=== PATIENT | female | born 1980 | race Caucasian/White ===

== ENCOUNTER → 2019-07-06 | Outpatient (CLI) | payer BC ==
--- NOTE | 2019-07-07 10:07 | MM ---
Reason for exam: screening (asymptomatic). Baseline mammogram. History: Patient is nulliparous. Physical Findings: Nurse did not find any significant physical abnormalities on exam. MG 3D Screening Mammo W/Cad Bilateral CC and MLO view(s) were taken. The breast tissue is heterogeneously dense. This may lower the sensitivity of mammography. There is a 7mm mass 6-7cm from nipple in the right upper outer quadrant. No suspicious abnormality on the left breast. These results were verbally communicated with the patient and result sheet given to the patient on 07/06/19. ASSESSMENT: Incomplete: need additional imaging evaluation, BI-RAD 0 RECOMMENDATION: Ultrasound of the right breast. (upper outer quadrant)
--- NOTE | 2019-07-07 10:08 | USB ---
Reason for exam: additional evaluation requested from abnormal screening. History: Patient is nulliparous. Physical Findings: Breast exam preformed at baseline screening. US Breast Workup Limited RT Right limited breast ultrasound including focal area of concern, retroareolar and axilla demonstrates a 9 x 6 x 8mm oval, cystic lesion at 10 o'clock, corresponds to mammographic findings. These results were verbally communicated with the patient and result sheet given to the patient on 07/06/19. ASSESSMENT: Benign, BI-RAD 2 RECOMMENDATION: Return to routine screening mammogram schedule for both breasts.
== END | disposition home or self-care (01) ==
LOC: RADMAMWWP 13:30
PROVIDERS: ATTEND Obstetrics & Gynecology
DX: Z12.31 Encounter for screening mammogram for malignant neoplasm of breast (principal); R92.8 Other abnormal and inconclusive findings on diagnostic imaging of breast
CPT/HCPCS: 77063; 77067

== ENCOUNTER → 2019-07-06 | Outpatient (CLI) | payer BC ==
[2019-07-07 03:48] LABS: Red Top (Bentgrass) IgE <0.10 kU/L
[2019-07-07 03:49] LABS: Cat Epith & Dander IgE 1.06 kU/L; Dermato. farinae IgE <0.10 kU/L
[2019-07-07 03:50] LABS: Aspergillus fumagatus IgE <0.10 kU/L; Cladosporian herbarum IgE <0.10 kU/L; Cockroach IgE <0.10 kU/L; Dog Dander IgE 0.16 kU/L
[2019-07-07 03:51] LABS: Alternaria alternata IgE <0.10 kU/L; Birch IgE <0.10 kU/L; Maple (Box Elder) IgE <0.10 kU/L
[2019-07-07 03:52] LABS: Elm IgE <0.10 kU/L; Oak IgE <0.10 kU/L
[2019-07-07 03:53] LABS: Ragweed,Common IgE 2.55 kU/L
[2019-07-07 11:49] LABS: Alt. alternata IgE Class CLASS 0; Alternaria alternata IgE <0.10 kU/L (<0.10); Asperg. fumagatus IgE <0.10 kU/L (<0.10); Asperg. fumagatus IgE Class CLASS 0; Candida albicans IgE Class CLASS 0; Clad herbarum IgE <0.10 kU/L (<0.10); Clad herbarum IgE Class CLASS 0; Mucor racemosus IgE <0.10 kU/L (<0.10); Mucor racemosus IgE Class CLASS 0; Penicillium chrysogenum IgE <0.10 kU/L (<0.10); Penicillium chrysogenum IgE Cl CLASS 0
== END | disposition home or self-care (01) ==
LOC: LABWHC1 14:28
PROVIDERS: ATTEND Family Medicine
DX: J30.9 Allergic rhinitis, unspecified (principal)
CPT/HCPCS: 36415; 82785; 86003

== ENCOUNTER → 2020-11-21 | Outpatient (CLI) | payer BC ==
--- NOTE | 2020-11-22 08:55 | MM ---
Reason for exam: screening (asymptomatic). Last mammogram was performed 1 year and 5 months ago. History: Patient is nulliparous. Physical Findings: A clinical breast exam by your physician is recommended on an annual basis and results should be correlated with mammographic findings. MG 3D Screening Mammo W/Cad Bilateral CC and MLO view(s) were taken. Prior study comparison: July 06, 2019, bilateral MG 3d screening mammo w/cad. The breast tissue is heterogeneously dense. This may lower the sensitivity of mammography. There are benign appearing round calcifications bilaterally. There is no discrete abnormality. ASSESSMENT: Benign, BI-RAD 2 RECOMMENDATION: Routine screening mammogram of both breasts in 1 year.
== END | disposition home or self-care (01) ==
LOC: RADMAMWWP 07:21
PROVIDERS: ATTEND Obstetrics & Gynecology
DX: Z12.31 Encounter for screening mammogram for malignant neoplasm of breast (principal)
CPT/HCPCS: 77063; 77067

== ENCOUNTER → 2021-05-01 | Outpatient (CLI) | payer BC ==
[2021-05-02 15:23] LABS: Estradiol 43.6 pg/mL; Testosterone 20.6 ng/mL (9.01-47.94)
== END | disposition home or self-care (01) ==
LOC: LABWHC1 08:10
PROVIDERS: ATTEND Family Medicine
DX: E34.9 Endocrine disorder, unspecified (principal)
CPT/HCPCS: 36415; 82670; 84144; 84402; 84403

== ENCOUNTER → 2021-05-08 | Outpatient (CLI) | payer BC ==
[2021-05-08 18:59] LABS: Testosterone 23.3 ng/mL (9.01-47.94)
== END | disposition home or self-care (01) ==
LOC: LABWHC1 09:43
PROVIDERS: ATTEND Family Medicine
DX: E34.9 Endocrine disorder, unspecified (principal)
CPT/HCPCS: 36415; 82670; 84144; 84402; 84403

== ENCOUNTER → 2021-05-15 | Outpatient (CLI) | payer BC ==
[2021-05-18 23:48] LABS: Albumin, LC/MS/MS 4.4 g/dL (3.6-5.1); Testosterone, Free, LC/MS/MS 1.3 pg/mL (0.2-5.0)
== END | disposition home or self-care (01) ==
LOC: LABWHC1 09:00
PROVIDERS: ATTEND Family Medicine
DX: E34.9 Endocrine disorder, unspecified (principal)
CPT/HCPCS: 36415; 82040; 82670; 84144; 84270; 84403

== ENCOUNTER → 2022-03-06 | Outpatient (CLI) | payer BC ==
--- NOTE | 2022-03-07 08:21 | MM ---
Reason for Exam: Screening (asymptomatic). Last mammogram was performed 1 year(s) and 4 month(s) ago. Patient History: Menarche at age 12. Patient has no children. Premenopausal. Maternal grandmother had ovarian cancer at or over age 50. Risk Values: Josefa 5 year model risk: 0.7%. NCI Lifetime model risk: 10.9%. Prior Study Comparison: 07/06/2019 Bilateral Screening Mammogram, [facility]. 11/21/2020 Bilateral Screening Mammogram, [facility]. Tissue Density: The breast tissue is heterogeneously dense. This may lower the sensitivity of mammography. Findings: Analyzed By CAD. There is no suspicious group of microcalcifications or new suspicious mass in either breast. Overall Assessment: Negative, BI-RAD 1 Management: Screening Mammogram of both breasts in 1 year. Some advised bilateral breast ultrasound surveillance in patients with background dense tissue. A clinical breast exam by your physician is recommended on an annual basis and results should be correlated with mammographic findings. Electronically signed and approved by: Manish Judge M.D.
== END | disposition home or self-care (01) ==
LOC: RADMAMWWP 07:05
PROVIDERS: ATTEND Obstetrics & Gynecology
DX: Z12.31 Encounter for screening mammogram for malignant neoplasm of breast (principal); Z80.3 Family history of malignant neoplasm of breast
CPT/HCPCS: 77063; 77067

== ENCOUNTER 2023-06-03 06:46 | Day surgery (SDC) | payer BC ==
[2023-06-01 13:38] VITALS: BMI 22.2
[~2023-06-03 06:46] MED LIST: LIDOCAINE 1% (10MG/ML) FOR IV START INTRADERMA PRN
[2023-06-03] MEDS: LACTATED RINGERS 1,000 ML IV SCH ×2 (07:24→07:39)
[2023-06-03 07:28] VITALS: TEMP 98.8
[2023-06-03] MEDS ORDERED: PROPOFOL 10 MG/ML 20 ML VIAL IV ONE (07:40)
--- NOTE | 2023-06-03 07:48 | P.GSHP ---
History of Present Illness H&P Date: 06/03/23 CHIEF COMPLAINT: Anemia, family history colon cancer HISTORY OF PRESENT ILLNESS: The patient is a 42-year-old female who presents with change in bowel habits, anemia, family history of colon cancer, possible GI bleed. Lower endoscopy was offered for further evaluation and management. PAST MEDICAL HISTORY: Please see list. PAST SURGICAL HISTORY: Please see list. MEDICATIONS: Please see list. ALLERGIES: Please see list. SOCIAL HISTORY: No illicit drug use FAMILY HISTORY: Colon cancer REVIEW OF ORGAN SYSTEMS: CONSTITUTIONAL: No reports of fevers or chills. PHYSICAL EXAM: VITAL SIGNS: Stable GENERAL: Well-developed pleasant in no acute distress. HEENT: No scleral icterus. Extraocular movements grossly intact. Moist buccal mucosa. NECK: Supple without lymphadenopathy. CHEST: Unlabored respirations. Equal bilateral excursions. CARDIOVASCULAR: Regular rate and rhythm. Distal 2+ pulses. ABDOMEN: Soft, nontender, nondistended. MUSCULOSKELETAL: No clubbing, cyanosis, or edema. ASSESSMENT: 1. Change in bowel habits with possible GI bleed 2. Anemia 3. Family history of colon cancer PLAN: 1. Recommend proceeding with a lower endoscopy Past Medical History Additional Past Medical History / Comment(s): always had gastrointestinal issues garcía after eating,heart racing approx 2011 History of Any Multi-Drug Resistant Organisms: None Reported Past Surgical History: Cardiac Ablation Past Anesthesia/Blood Transfusion Reactions: No Reported Reaction Additional Past Anesthesia/Blood Transfusion Reaction / Comment(s): felt irritated waking up from cardiac ablation. no hx blood transfusion-Jehovah Witness Smoking Status: Never smoker - Past Family History Father Family Medical History: Cancer Additional Family Medical History / Comment(s): colon Medications and Allergies Home Medications Medication Instructions Recorded Confirmed Type No Known Home Medications 06/01/23 06/03/23 History Allergies Allergy/AdvReac Type Severity Reaction Status Date / Time EKG stickers Allergy irritates Uncoded 06/03/23 07:07 skin if on long Surgical - Exam Vital Signs Temp Pulse Resp BP Pulse Ox 98.8 F 78 16 134/81 100 06/03/23 07:09 06/03/23 07:09 06/03/23 07:09 06/03/23 07:09 06/03/23 07:09
--- NOTE | 2023-06-03 08:14 | P.PCN ---
Date of Procedure: 06/03/23 Description of Procedure: PREOPERATIVE DIAGNOSIS: Anemia Change in bowel habits Family history colon cancer, high risk POSTOPERATIVE DIAGNOSIS: Anemia Change in bowel habits Family history colon cancer, high risk OPERATION: Colonoscopy to the cecum, ileocecal valve and appendiceal orifice. SURGEON: Krista Ortiz MD. ANESTHESIA: MAC. INDICATIONS: The patient is a 42-year-old female who presents for change in bowel habits, family history colon cancer and anemia. Benefits and risks were described and informed consent was obtained. DESCRIPTION OF PROCEDURE: The patient had undergone Sutab prep. The patient had been brought into the operating room and laid in the left lateral decubitus position. After adequate intravenous sedation, the rectum was examined with 2% lidocaine jelly. No external hemorrhoids were encountered. The rectal tone was within normal limits. No lesions were palpated in the rectal vault. An Olympus colonoscope was advanced until the cecum, ileocecal valve and appendiceal orifice were clearly viewed. The prep was excellent. Scattered diverticulosis was encountered. No colonic polyps were found. No evidence of focal colitis was found. Retroflexion of the scope demonstrated grade 1 internal hemorrhoids without active bleeding or inflammation. The colon was desufflated. The patient had tolerated the procedure well. Withdrawal time was over 6 minutes. FINDINGS: Aronchick preparation quality scale 1 (1-5) Internal hemorrhoids, grade 1 No external prolapsed hemorrhoids. No arteriovenous malformations. No adenomatous polyps. No focal colitis. RECOMMENDATIONS: Lower endoscopy in 2027 Plan - Discharge Summary Discharge Rx Participant: No New Discharge Prescriptions: No Action No Known Home Medications Discharge Medication List No Known Home Medications 06/01/23 [History] Follow up Appointment(s)/Referral(s): Krista Ortiz MD [STAFF PHYSICIAN] - As Needed Patient Instructions/Handouts: Colonoscopy (DC) Activity/Diet/Wound Care/Special Instructions: Repeat colonoscopy 5 years, 2027 Discharge Disposition: HOME SELF-CARE
[2023-06-03 08:48] VITALS: BP 128/78; PULSE 63; RESP 20
== END 2023-06-03 08:35 | disposition home or self-care (01) ==
LOC: ORWHC2ENDO 06:46 → EEVIPCON 08:00 → ORWHC2ENDO 08:35
PROVIDERS: ATTEND Surgery Plastic and Reconstructive Surgery
DX: Z12.11 Encounter for screening for malignant neoplasm of colon (principal); K57.30 Diverticulosis of large intestine without perforation or abscess without bleeding; K64.0 First degree hemorrhoids; D64.9 Anemia, unspecified; Z80.0 Family history of malignant neoplasm of digestive organs; Z98.890 Other specified postprocedural states; Z87.898 Personal history of other specified conditions
CPT/HCPCS: 81025; 45378; J2704

== ENCOUNTER → 2024-05-11 | Outpatient (CLI) | payer BC ==
--- NOTE | 2024-05-11 12:31 | MM ---
Reason for Exam: Screening (asymptomatic). Last mammogram was performed 2 year(s) and 2 month(s) ago. Patient History: Menarche at age 12. Patient has no children. Premenopausal. Maternal grandmother had ovarian cancer, age 80. Risk Values: Josefa 5 year model risk: 0.9%. NCI Lifetime model risk: 10.7%. Prior Study Comparison: 07/06/2019 Bilateral Screening Mammogram, [facility]. 11/21/2020 Bilateral Screening Mammogram, [facility]. 03/06/2022 Bilateral MG 3D screening mammo w/cad, [facility]. Tissue Density: The breasts are heterogeneously dense, which may obscure small masses. Findings: Analyzed By CAD. There is no suspicious group of microcalcifications or new suspicious mass in either breast. Overall Assessment: Negative, BI-RAD 1 Management: Screening Mammogram of both breasts in 1 year. . Patient should continue monthly self-breast exams. A clinical breast exam by your physician is recommended on an annual basis. This exam should not preclude additional follow-up of suspicious palpable abnormalities. Note on Josefa scores and lifetime risk: 1. A Josefa score greater than 3% is considered moderate risk. If this is the case, consider specialist referral to assess eligibility for a risk reducing agent. 2. If overall lifetime risk for the development of breast cancer is 20% or higher, the patient may qualify for future screening with alternating mammogram and breast MRI. [facility], , 05/11/2024 12:28 PM. Electronically signed and approved by: Gianluca Marr M.D. Radiologis
== END | disposition home or self-care (01) ==
LOC: RADMAMWWP 06:56
PROVIDERS: ATTEND Obstetrics & Gynecology
CPT/HCPCS: 77063; 77067

== ENCOUNTER 2024-10-12 08:19 | Day surgery (SDC) | payer BC ==
[2024-10-12 09:03] VITALS: RESP 16; TEMP 97.6
[2024-10-12 10:00] VITALS: BP 139/76; PULSE 56
--- NOTE | 2024-10-12 10:26 | US ---
EXAM: US FNA thyroid first lesion DATE OF EXAM: 10/12/2024 COMPARISON: 09/08/2024 DESCRIPTION: The procedure of thyroid guided fine-needle biopsy was explained to the patient. Benefits, alternati ves, and risks were discussed. An informed consent was then obtained. The standard sterile technique was utilized as well as appropriate local anesthesia with 1% lidocaine . 5 passes were obtained through the right thyroid nodule utilizing a 25-gauge needle. Specimens were sent to cytology for further evaluation. Pathology results pending. The patient tolerated the procedure well and left the department in stable condition. IMPRESSION: Ultrasound-guided fine-needle biopsy of right thyroid nodule with cytology pending. [facility], , 10/12/2024 10:24 AM
== END 2024-10-12 09:55 | disposition home or self-care (01) ==
LOC: RADPROMAIN 08:19
PROVIDERS: ATTEND Family Medicine
DX: E04.1 Nontoxic single thyroid nodule (principal)
CPT/HCPCS: 10005; 88173; 88305

== ENCOUNTER → 2024-10-24 | Outpatient (CLI) | payer BC ==
--- NOTE | 2024-10-24 22:49 | MR ---
EXAMINATION TYPE: MR pituitary wo/w con DATE OF EXAM: 10/24/2024 COMPARISON: NONE HISTORY: Hyperprolactinemia, Attn- Adenoma, High Prolactin level, Hx RT thyroid nodule, TECHNIQUE: Multiplanar, multisequence images of the brain and brainstem is performed without and with IV contras t, utilizing 6.5 mL intravenous Gadobutrol . The pituitary gland protocol. FINDINGS: Midline structures demonstrate normal morphology. Pituitary gland shows no suspicious superior exten oswaldo from the sella turcica to suggest macroadenoma. Transverse measurement is noted 15 mm, slightly prominent. Pituitary stalk shows normal enhancement in the midline superior to this. Suprasellar cist yefri is maintained. Postcontrast images show no suspicious areas of nonenhancement to suggest microade noma. The craniocervical junction appears within normal limits. No hydrocephalus is seen. IMPRESSION: No definitive convincing evidence for pituitary micro or macroadenoma. [facility], , 10/24/2024 10:46 PM
== END | disposition home or self-care (01) ==
LOC: RADMRIMAIN 15:36
PROVIDERS: ATTEND Family Medicine
DX: E22.1 Hyperprolactinemia (principal)
CPT/HCPCS: 70553; A9585